=== PATIENT | male | born 1965 | race American Indian/Alaskan Native ===

== ENCOUNTER 2016-10-02 13:05 | Emergency (ER) | payer SELFPAY ==
[~2016-10-02] VITALS: Ht 177.8 cm; Wt 120.0 kg
[2016-10-02] MEDS ORDERED: PLEASE ENTER ALLERGIES MC SCH ×2 (13:30)
[2016-10-02] MEDS ORDERED: PLEASE ENTER HEIGHT AND WEIGHT MC SCH (13:30)
[2016-10-02] MEDS ORDERED: ONDANSETRON 2MG/ML, 2ML IM ONE (13:30)
[2016-10-02] MEDS ORDERED: ONDANSETRON 2MG/ML, 2ML ONE (13:37)
[2016-10-02] MEDS ORDERED: HALOPERIDOL 5 MG/ML ONE ×2 (13:50→14:54)
[2016-10-02 14:00] LABS: ASPARTATE AMINO TRANSFERASE 30 U/L (15-37); BLOOD UREA NITROGEN 6 mg/dL (7-18)
[2016-10-02] MEDS ORDERED: HALOPERIDOL 5 MG/ML IM PRN (14:00)
[2016-10-02 17:41] VITALS: BP 128/75
== END 2016-10-02 17:43 | disposition home or self-care (01) ==
LOC: ED 17:00
DX: F10.120 Alcohol abuse with intoxication, uncomplicated (principal)
CPT/HCPCS: 36415; 71010; 80053; 80307; 85025; 96372; 99285; J1630; J2405